=== PATIENT | male | born 1960 | race Caucasian/White ===

== ENCOUNTER 2018-09-05 08:05 | Emergency (ER) | payer BC ==
--- NOTE | 2018-09-05 08:34 | Emergency Department Record ---
History of Present Illness - General Chief Complaint: Back Pain/Injury Stated Complaint: FELL DOWN STAIRS/BACK AND LEG PAIN Time Seen by Provider: 09/05/18 08:18 Source: Patient, RN notes reviewed - History of Present Illness Initial Comments: fell on steps at home and landed on buttock and went down 14 stairs. Feet slipped and abrasions of elbows and hit the right side of head and NO LOC and no vomiting or headaches. Patient has pain in the left lumbar side area and tailbone and some pain radiating down the left leg to the mid thigh and ROM of left hip good and no hip pain standing just pain in low back and pelvic area. PMH parkinson's disease and hypertension and buldging disk L4 discovered on MRI jan 2018. Patient denies neck pain or ROM problems. patient took motrin 800 which helped nothing today. Asked if he would like a motrin now and he said no. No blood in urine Onset/Timin -: Days(s) Similar Symptoms Previously: Yes Place: Home Radiation: Left leg Severity: Moderate Severity scale (1-10): 10 Quality: Sharp Consistency: Constant, Getting worse Improves With: Immobilization Worsens With: Movement, Walking Context: Fall Associated Symptoms: Denies other symptoms Treatments Prior to Arrival: NSAIDS Treatment Prior to Arrival Comment:: Motrin 800 mg - Related Data Home Medications Medication Instructions Recorded Confirmed Last Taken Lisinopril [Zestril] 20 mg PO DAILY 09/05/18 09/05/18 09/04/18 Melatonin 5 mg PO QHS 09/05/18 09/05/18 09/04/18 [place]-3 Fatty Acids/Fish Oil [Fish 1 tab PO DAILY 09/05/18 09/05/18 09/04/18 Oil 1,000 mg Capsule] Ubidecarenone [Co Q-10] 200 mg PO DAILY 09/05/18 09/05/18 09/04/18 Allergies Allergy/AdvReac Type Severity Reaction Status Date / Time No Known Drug Allergies Allergy Verified 09/05/18 08:07 Travel Screening - Travel/Exposure Within Last 30 Days Have you traveled within the last 30 days?: No - Travel/Exposure Within Last Year Have you traveled outside the [place] in the last year?: No - Additonal Travel Details Have you been exposed to anyone with a communicable illness?: No - Travel Symptoms Symptom Screening: None Review of Systems Reviewed: No additional complaints except as noted below Constitutional: Reports: As per HPI. Denies: Chills, Fever, Malaise, Night sweats, Weakness, Weight change Eyes: Reports: As per HPI. Denies: Eye discharge, Eye pain, Photophobia, Vision change ENT: Reports: As per HPI. Denies: Congestion, Dental pain, Ear pain, Epistaxis, Hearing loss, Throat pain Respiratory: Reports: As per HPI. Denies: Cough, Dyspnea, Hemoptysis, Stridor, Wheezes Cardiovascular: Reports: As per HPI. Denies: Arrhythmia, Chest pain, Dyspnea on exertion, Edema, Murmurs, Orthopnea, Palpitations, Paroxysmal nocturnal dyspnea, Rheumatic Fever, Syncope Endocrine: Reports: As per HPI. Denies: Fatigue, Heat or cold intolerance, Polydipsia, Polyuria Gastrointestinal: Reports: As per HPI. Denies: Abdominal pain, Constipation, Diarrhea, Hematemesis, Hematochezia, Melena, Nausea, Vomiting Genitourinary: Reports: As per HPI. Denies: Dysuria, Frequency, Hematuria, Incontinence, Retention, Testicular pain, Testicular mass, Urgency Musculoskeletal: Reports: As per HPI, Back pain. Denies: Arthralgia, Gout, Joint swelling, Myalgia, Neck pain Skin: Reports: As per HPI. Denies: Bruising, Change in color, Change in hair/nails, Lesions, Pruritus, Rash Neurological: Reports: As per HPI. Denies: Abnormal gait, Confusion, Headache, Numbness, Paresthesias, Seizure, Tingling, Tremors, Vertigo, Weakness Psychiatric: Reports: As per HPI. Denies: Anxiety, Auditory hallucinations, Depression, Homicidal thoughts, Suicidal thoughts, Visual hallucinations Hematological/Lymphatic: Reports: As per HPI. Denies: Anemia, Blood Clots, Easy bleeding, Easy bruising, Swollen glands Past Medical History - SOCIAL HISTORY Smoking Status: Former smoker Alcohol Use: Occasional Drug Use: None - RESPIRATORY Hx Respiratory Disorders: No - CARDIOVASCULAR Hx Cardio Disorders: Yes Hx Hypertension: Yes - NEURO Hx Neuro Disorders: Yes Hx Parkinson's Disease: Yes - GI Hx GI Disorders: No - Hx Genitourinary Disorders: No - ENDOCRINE Hx Endocrine Disorders: No - MUSCULOSKELETAL Hx Musculoskeletal Disorders: Yes - PSYCH Hx Psych Problems: No - HEMATOLOGY/ONCOLOGY Hx Hematology/Oncology Disorders: No Family Medical History Any Significant Family History?: No Physical Exam - General General Appearance: Alert, Oriented x3, Cooperative, No acute distress - Head Head exam: Normal inspection - Eye Eye exam: Normal appearance, PERRL Pupils: Normal accommodation - ENT ENT exam: Normal exam, Mucous membranes moist, Normal external ear exam, Normal orophraynx, TM's normal bilaterally Ear exam: Normal external inspection. negative: External canal tenderness Nasal Exam: Normal inspection. negative: Discharge, Sinus tenderness Mouth exam: Normal external inspection, Tongue normal Teeth exam: Normal inspection. negative: Dental caries Throat exam: Normal inspection. negative: Tonsillar erythema, Tonsillar exudate - Neck Neck exam: Normal inspection, Full ROM. negative: Tenderness - Respiratory Respiratory exam: Normal lung sounds bilaterally. negative: Respiratory distress - Cardiovascular Cardiovascular Exam: Regular rate, Normal rhythm, Normal heart sounds - GI/Abdominal GI/Abdominal exam: Soft, Normal bowel sounds. negative: Tenderness - Rectal Rectal exam: Deferred - exam: Deferred - Extremities Extremities exam: Normal inspection, Full ROM, Normal capillary refill. negative: Tenderness - Back Back exam: Reports: Muscle spasm, Tenderness, Other (ecchymosis left lumbar area). Denies: Rash noted - Neurological Neurological exam: Alert, Normal gait, Oriented X3, Reflexes normal, Other (standing on toes equal bilaterally, pain in the lumbar spine with standing flexion, tailbone pain) - Psychiatric Psychiatric exam: Normal affect, Normal mood - Skin Skin exam: Dry, Intact, Normal color, Warm Course Vital Signs 09/05/18 08:11 Temperature 97.9 F Pulse Rate 68 Respiratory 16 Rate Blood Pressure 136/95 Pulse Ox 100 Medical Decision Making - Data Complexity MDM Data: Labs Ordered and/or Reviewed (UA no blood), X-Ray Ordered and/or Reviewed (mild wedging of t 12 and T11 degenerative, pain is lower than that, L5 area, pelvic xray negative sacrum coccyx negative) Disposition Clinical Impression: Lumbar pain, Lumbar back pain with radiculopathy affecting left lower extremity Contusion of sacrum Qualifiers: Encounter type: initial encounter Qualified Code(s): S30.0XXA - Contusion of lower back and pelvis, initial encounter 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 Qualified Code(s): M47.24 - Other spondylosis with radiculopathy, thoracic region Lumbar contusion Qualifiers: Encounter type: initial encounter Qualified Code(s): S30.0XXA - Contusion of lower back and pelvis, initial encounter Coccyx contusion Qualifiers: Encounter type: initial encounter Qualified Code(s): S30.0XXA - Contusion of lower back and pelvis, initial encounter Disposition: Home, Self-Care Condition: (1) Good Instructions: Low Back Strain (ED), Contusion in Adults (ED) Additional Instructions: follow up with family in 5 days motrin 600 mg to 800 mg every 8 hours Forms: Patient Portal Access Time of Disposition: 09:40 Quality - Quality Measures Quality Measures: N/A - Blood Pressure Screening Does Patient Have Any of the Following: No, Active Dx of HTN Blood Pressure Classification: Hypertensive Reading Systolic Measurement: 136 Diastolic Measurement: 95 Screening for High Blood Pressure: Patient Exclusion, Hx of HTN [[id number]]
[2018-09-05 08:49] LABS: URINE APPEARANCE CLEAR; URINE BILIRUBIN NEGATIVE (NEGATIVE); URINE BLOOD NEGATIVE (NEGATIVE); URINE COLOR YELLOW; URINE GLUCOSE (UA) NEGATIVE (NEGATIVE); URINE KETONE NEGATIVE (NEGATIVE); URINE LEUKOCYTE ESTERASE NEGATIVE (NEGATIVE); URINE NITRITE NEGATIVE (NEGATIVE); URINE PROTEIN NEGATIVE (NEGATIVE); URINE UROBILINOGEN 0.2 E.U./dL (0.20 - 1.00)
--- NOTE | 2018-09-06 20:11 | RADIOLOGY REPORT ---
EXAM: LUMBAR SPINE / AP LAT HISTORY: LEFT-SIDED LOWER BACK PAIN SINCE FALL THREE DAYS AGO. TECHNIQUE: AP and lateral views of the lumbar spine are obtained. COMPARISON: Same-day radiographic examinations of the pelvis and sacrum/coccyx. FINDINGS: There is normal bone mineralization. There are transitional thoracolumbar and lumbosacral segments with four classic [id number] lumbar- type vertebrae. The most inferior of these will be designated as L4. The designated S1 vertebra is partially lumbarized. The ribs of the last rib-bearing vertebrae are rudimentary. There is mild levoconvex scoliosis centered at the designated L2-L3 level. There is minor retrolisthesis of L1 on L2, L2 on L3, as well as L3 on L4. The vertebral bodies are otherwise normal in alignment. There is mild anterior wedging of the designated T11 and T12 vertebrae appearing chronic. No definite acute fracture nor suspicious subluxation. No lytic or blastic bone lesion. Multilevel degenerative disc/degenerative endplate changes are identified, primarily mild in degree at the lumbar levels and mild to moderate in degree at the visualized lower thoracic levels. Multilevel bilateral facet arthropathy is present most pronounced at the lower lumbar levels on the right where the changes are advanced. There are mild degenerative changes of the hips. IMPRESSION: 1. TRANSITIONAL THORACOLUMBAR AND LUMBOSACRAL SEGMENTS WITH FOUR [id number] LUMBAR-TYPE VERTEBRAE PRESENT. THE MOST INFERIOR OF THESE IS DESIGNATED L4. 2. NO DEFINITE ACUTE FRACTURE NOR SUSPICIOUS SUBLUXATION. MILD ANTERIOR WEDGING OF THE DESIGNATED T11 AND T12 VERTEBRAE APPEARS CHRONIC. 3. MULTILEVEL DEGENERATIVE CHANGES ASSOCIATED WITH MILD LEVOCONVEX CURVATURE CENTERED AT THE DESIGNATED L2-L3 LEVEL. MINOR MULTILEVEL RETROLISTHESIS LIKELY RELATING TO DEGENERATIVE DISEASE. JOB NUMBER: [id number] [facility]
--- NOTE | 2018-09-06 20:15 | RADIOLOGY REPORT ---
EXAM: PELVIS, COMPLETE 3 VIEWS HISTORY: LEFT-SIDED LOWER BACK PAIN THREE DAYS POST FALL. TAILBONE PAIN. TECHNIQUE: Three views of the pelvis. COMPARISON: Same-day radiographic examinations of the lumbar spine and sacrum/coccyx. ENCOUNTER: Initial. FINDINGS: There is normal bone mineralization. No acute facture nor dislocation. There are moderate to advanced facet degenerative changes involving the lower lumbar spine. There are osteoarthritic changes of the hips, moderate in degree on the left and mild in degree on the right. The sacroiliac joints are symmetric with mild marginal spurring present. The arcuate lines of the sacrum are intact. Small round calcifications are scattered within the inferior pelvis. IMPRESSION: 1. NO ACUTE FRACTURE NOR DISLOCATION. 2. DEGENERATIVE CHANGES. JOB NUMBER: [id number] [facility]
--- NOTE | 2018-09-07 05:25 | RADIOLOGY REPORT ---
EXAM: SACRUM & COCCYX HISTORY: LEFT-SIDED LOWER BACK PAIN. TAILBONE PAIN. TECHNIQUE: Three views of the sacrum and coccyx are obtained. COMPARISON: Same-day radiographic examinations of the pelvis and lumbar spine. ENCOUNTER: Initial. FINDINGS: There is normal bone mineralization. No convincing acute fracture nor subluxation. There are moderate degenerative changes of the left hip and mild degenerative changes of the right hip. The sacroiliac joints are symmetric. Mild degenerative change of the sacroiliac joints. Multilevel degenerative changes of the visualized mid to lower lumbar spine identified, most pronounced at the lower levels where facet arthropathy is advanced on the right. The arcuate lines of the sacrum appear intact. IMPRESSION: 1. NO ACUTE FRACTURE NOR SUSPICIOUS SUBLUXATION. 2. DEGENERATIVE CHANGES DISCUSSED ABOVE. JOB NUMBER: [id number] [facility]
== END 2018-09-05 09:58 | disposition home or self-care (01) ==
LOC: ER 08:05
DX: S30.0XXA Contusion of lower back and pelvis, initial encounter (principal); S50.312A Abrasion of left elbow, initial encounter; S50.311A Abrasion of right elbow, initial encounter; M51.14 Intervertebral disc disorders with radiculopathy, thoracic region; M54.16 Radiculopathy, lumbar region; I10 Essential (primary) hypertension; G20 Parkinson's disease; W10.9XXA Fall (on) (from) unspecified stairs and steps, initial encounter; Y92.009 Unspecified place in unspecified non-institutional (private) residence as the place of occurrence of the external cause; Z87.891 Personal history of nicotine dependence
CPT/HCPCS: 72100; 72190; 72220; 81003; 99283; 99284